=== PATIENT | male | born 1990 | race Caucasian/White ===

== ENCOUNTER 2017-11-23 17:38 | Emergency (ER) | payer MEDICAID ==
[~2017-11-23] VITALS: Ht 182.9 cm; Wt 79.8 kg
[2017-11-23 17:46] VITALS: BP 139/74; Ht 182.9 cm; Wt 79.8 kg
== END 2017-11-23 18:57 | disposition home or self-care (01) ==
LOC: ED 17:38
DX: M94.0 Chondrocostal junction syndrome [Tietze] (principal)

== ENCOUNTER 2018-02-28 20:55 | Emergency (ER) | payer MEDICAID ==
[2018-02-28 21:05] VITALS: Ht 180.3 cm
[2018-02-28 21:39] VITALS: BP 129/81
== END 2018-02-28 21:39 | disposition home or self-care (01) ==
LOC: ED 20:55
DX: R07.81 Pleurodynia (principal)

== ENCOUNTER 2018-03-24 12:37 | Emergency (ER) | payer MEDICAID ==
[~2018-03-24] VITALS: Ht 180.3 cm; Wt 78.0 kg
[2018-03-24 12:41] VITALS: Ht 180.3 cm; Wt 78.0 kg
[2018-03-24 15:09] VITALS: BP 131/80
== END 2018-03-24 15:09 | disposition home or self-care (01) ==
LOC: ED 12:37
DX: J20.9 Acute bronchitis, unspecified (principal)

== ENCOUNTER 2018-03-25 22:43 | Emergency (ER) | payer MEDICAID ==
[~2018-03-25] VITALS: Ht 180.3 cm; Wt 78.0 kg
[2018-03-25 22:47] VITALS: Ht 180.3 cm; Wt 78.0 kg
[2018-03-26 00:51] VITALS: BP 125/87
== END 2018-03-26 00:51 | disposition home or self-care (01) ==
LOC: ED 22:43
DX: J06.9 Acute upper respiratory infection, unspecified (principal); J20.9 Acute bronchitis, unspecified
CPT/HCPCS: J7613

== ENCOUNTER 2018-06-22 21:54 | Emergency (ER) | payer MEDICAID ==
[~2018-06-22] VITALS: Ht 180.3 cm; Wt 77.1 kg
[2018-06-22 22:00] VITALS: BP 140/89; Ht 180.3 cm; Wt 77.1 kg
== END 2018-06-22 23:03 | disposition home or self-care (01) ==
LOC: ED 21:54
DX: R09.82 Postnasal drip (principal); J45.909 Unspecified asthma, uncomplicated; I10 Essential (primary) hypertension; Z88.0 Allergy status to penicillin
CPT/HCPCS: J7620

== ENCOUNTER 2018-06-29 06:30 | Emergency (ER) | payer MEDICAID ==
[~2018-06-29] VITALS: Ht 180.3 cm; Wt 75.7 kg
[2018-06-29 06:34] VITALS: Ht 180.3 cm; Wt 75.7 kg
[2018-06-29 10:09] LABS: CARBON DIOXIDE 28.1 mmol/L (21-32); CHLORIDE SERUM 105 mmol/L (98-107); CREATININE SERUM 0.9 mg/dL (0.7-1.3); GFR1 > 60 mL/min; GLUCOSE SERUM 101 mg/dL (74-106); POTASSIUM SERUM 3.4 mmol/L (3.5-5.1); SODIUM SERUM 142 mmol/L (136-145)
[2018-06-29 10:21] LABS: ALBUMIN 4.1 g/dL (3.4-5.0); ALKALINE PHOSPHATASE 55 U/L (46-116); ALT/SGPT 19 U/L (16-63); AMYLASE 60 U/L (25-115); AST/SGOT 13 U/L (15-37); BILIRUBIN TOTAL 1.21 mg/dL (0.20-1.00); LIPASE 102 IU/L (73-393); T4(THYROXINE) 6.8 ug/dL (4.7-13.3); TOTAL PROTEIN, SERUM 7.3 g/dL (6.4-8.2)
[2018-06-29 10:22] LABS: PLATELET COUNT 219 x10^3mcL (130-400); RED CELL DISTRIBUTION WIDTH 12.7 % (11.5-14.5)
[2018-06-29 10:24] LABS: BASOPHIL % 0 % (0-2)
[2018-06-29 10:26] LABS: CHOLESTEROL 118 mg/dL (<200)
[2018-06-29 10:38] LABS: microscopic required? NO
[2018-06-29 10:58] LABS: urine erythrocyte NEGATIVE (NEGATIVE)
[2018-06-29 11:41] VITALS: BP 113/55
[2018-06-29 11:48] LABS: AMPHETAMINE QUAL UR NONE DETECTED (See below)
== END 2018-06-29 12:37 | disposition home or self-care (01) ==
LOC: ED 06:30
PROVIDERS: Emergency Medicine
DX: J45.901 Unspecified asthma with (acute) exacerbation (principal); F41.9 Anxiety disorder, unspecified; Z98.890 Other specified postprocedural states; Z88.0 Allergy status to penicillin
CPT/HCPCS: 36600; 94150; J2405; J2930; J3490; J7030; J7613; J7644

== ENCOUNTER 2018-11-19 01:00 | Emergency (ER) | payer MEDICAID ==
[~2018-11-19] VITALS: Ht 180.3 cm; Wt 75.3 kg
[2018-11-19 01:07] VITALS: Ht 180.3 cm; Wt 75.3 kg
[2018-11-19 02:29] LABS: microscopic required? NO
[2018-11-19 02:33] LABS: BASOPHIL % 0.7 % (0-2); PLATELET COUNT 189 x10^3mcL (130-400); RED CELL DISTRIBUTION WIDTH 12.7 % (11.5-14.5)
[2018-11-19 02:39] LABS: urine erythrocyte NEGATIVE (NEGATIVE)
[2018-11-19 02:41] LABS: CALCIUM 9.6 mg/dL (8.5-10.1); CARBON DIOXIDE 21.9 mmol/L (21-32); CHLORIDE SERUM 106 mmol/L (98-107); CREATININE SERUM 0.8 mg/dL (0.7-1.3); GFR1 > 60 mL/min; GLUCOSE SERUM 90 mg/dL (74-106); POTASSIUM SERUM 3.5 mmol/L (3.5-5.1); SODIUM SERUM 143 mmol/L (136-145)
[2018-11-19 02:46] LABS: ALBUMIN 4.3 g/dL (3.4-5.0); ALKALINE PHOSPHATASE 65 U/L (46-116); ALT/SGPT 14 U/L (16-63); AST/SGOT 12 U/L (15-37); BILIRUBIN TOTAL 1.05 mg/dL (0.20-1.00); TOTAL PROTEIN, SERUM 7.3 g/dL (6.4-8.2)
[2018-11-19 04:26] VITALS: BP 145/91
== END 2018-11-19 04:27 | disposition home or self-care (01) ==
LOC: ED 01:00
PROVIDERS: Emergency Medicine
DX: R05 Cough (principal); R06.02 Shortness of breath; R06.2 Wheezing; Z98.890 Other specified postprocedural states; Z88.0 Allergy status to penicillin
CPT/HCPCS: 36415; 83880; 85378

== ENCOUNTER 2019-08-15 21:42 | Emergency (ER) | payer MEDICAID, SELFPAY ==
[~2019-08-15] VITALS: Ht 180.3 cm; Wt 76.2 kg
[2019-08-15 21:45] VITALS: Ht 180.3 cm; Wt 76.2 kg
[2019-08-15 22:59] VITALS: BP 127/74
== END 2019-08-15 23:58 | disposition home or self-care (01) ==
LOC: ED 21:42
DX: R06.02 Shortness of breath (principal); R05 Cough; J45.909 Unspecified asthma, uncomplicated; Z88.0 Allergy status to penicillin; Z20.828 Contact with and (suspected) exposure to other viral communicable diseases
CPT/HCPCS: Q0092

== ENCOUNTER 2020-04-06 01:13 | Emergency (ER) | payer MEDICAID ==
[~2020-04-06] VITALS: Ht 182.9 cm; Wt 75.7 kg
[2020-04-06 01:18] VITALS: Ht 182.9 cm; Wt 75.7 kg
[2020-04-06 03:56] VITALS: BP 115/77
== END 2020-04-06 03:57 | disposition home or self-care (01) ==
LOC: ED 01:13
DX: R05 Cough (principal); J45.909 Unspecified asthma, uncomplicated; Z20.828 Contact with and (suspected) exposure to other viral communicable diseases
CPT/HCPCS: Q0163; U0003

== ENCOUNTER 2020-05-27 19:34 | Emergency (ER) | payer MEDICAID ==
[~2020-05-27] VITALS: Ht 167.6 cm; Wt 76.7 kg
[2020-05-27 19:39] VITALS: BP 148/97; Ht 167.6 cm; Wt 76.7 kg
== END 2020-05-27 20:20 | disposition home or self-care (01) ==
LOC: ED 19:34
DX: R06.02 Shortness of breath (principal); F41.9 Anxiety disorder, unspecified; Z20.828 Contact with and (suspected) exposure to other viral communicable diseases
CPT/HCPCS: U0003